=== PATIENT | female | born 1960 | race Caucasian/White ===

== ENCOUNTER 2017-03-10 14:10 | Emergency (ER) | payer OTHER ==
[~2017-03-10] VITALS: Ht 162.6 cm; Wt 72.0 kg
[2017-03-10 14:30] LABS: BASOPHILS % (AUTO) 0.7 % (0-1); EOSINOPHILS # (AUTO) 0.2 X10'3 (0-0.9); EOSINOPHILS % (AUTO) 2.6 % (0-6); HEMOGLOBIN 8.3 g/dl (12.0-16.0); LYMPHOCYTES # (AUTO) 2.5 X10'3 (1.1-4.8); LYMPHOCYTES % (AUTO) 37.7 % (21-51); MEAN CORPUSCULAR HEMOGLOBIN 20.3 PG (27.0-31.0); MEAN CORPUSCULAR HGB CONC 30.5 % (33.0-36.5); MEAN CORPUSCULAR VOLUME 66.4 FL (78-98); MEAN PLATELET VOLUME 7.9 FL (7.4-10.4); MONOCYTES # (AUTO) 0.5 X10'3 (0-0.9); MONOCYTES % (AUTO) 7.4 % (2-12); NEUTROPHILS # (AUTO) 3.4 X10'3 (1.8-7.7); NEUTROPHILS % (AUTO) 51.6 % (42-75); PLATELET COUNT 320 X10'3 (140-440); RED BLOOD COUNT 4.07 X10'6 (4.20-5.60); RED CELL DISTRIBUTION WIDTH 18.9 % (11.5-14.5); WHITE BLOOD COUNT 6.6 X10'3 (4.5-11.0)
[2017-03-10 14:39] LABS: ANISOCYTOSIS 2+; MICROCYTOSIS 2+; PLATELET ESTIMATE NORMAL
[2017-03-10 14:40] LABS: POIKILOCYTOSIS FEW; POLYCHROMASIA 2+; TARGET CELLS 1+
[2017-03-10 14:41] LABS: PARTIAL THROMBOPLASTIN TIME 23 SECONDS (22-32); PROTHROMBIN TIME 10.6 SECONDS (9.0-12.0)
[2017-03-10 14:51] LABS: ALANINE AMINOTRANSFERASE 24 U/L (12-78); ALBUMIN 3.7 G/DL (3.4-5.0); ALBUMIN/GLOBULIN RATIO 1.2 (1.1-1.5); ALKALINE PHOSPHATASE 97 IU/L (46-116); ANION GAP 6 (8-16); ASPARTATE AMINO TRANSFERASE 15 U/L (10-37); BILIRUBIN,TOTAL 0.3 MG/DL (0.1-1.0); BLOOD UREA NITROGEN 10 MG/DL (7-18); BUN/CREATININE RATIO 16.7 (6.6-38.0); CALCIUM 8.8 MG/DL (8.5-10.1); CHLORIDE 111 MMOL/L (99-107); GLUCOSE 104 MG/DL (70-104); POTASSIUM 3.9 MMOL/L (3.5-5.1); SODIUM 146 MMOL/L (135-145); TOTAL CARBON DIOXIDE 28.6 MMOL/L (24-32); TOTAL PROTEIN 6.9 G/DL (6.4-8.2); eGFR > 90 ML/MIN
[2017-03-10] MEDS ORDERED: diphenhydrAMINE 50 mg/ml inj IV ONE (15:35)
[2017-03-10] MEDS ORDERED: aspirin 325mg tablet PO ONE (15:35)
[2017-03-10] MEDS ORDERED: ondansetron/PF 4mg/2ml inj IV ONE (15:35)
[2017-03-10] MEDS ORDERED: metoclopramide 5 mg/ml inj IV ONE (15:35)
[2017-03-10] MEDS ORDERED: famotidine/PF 10 mg/ml inj IV ONE (15:35)
[2017-03-10] MEDS ORDERED: iohexol 300mg/ml 100ml inj. ONE (15:39)
[2017-03-10 15:51] LABS: LIPASE 417 U/L (73-393)
[2017-03-10] MEDS ORDERED: proCHLORperazine 10 MG/2 ml inj IV ONE (15:55)
[2017-03-10] MEDS ORDERED: LORazepam 2 mg/ml vial IV ONE (18:00)
[2017-03-10] MEDS ORDERED: PANT-47 PO (18:58)
[2017-03-10 19:09] VITALS: BP 141/92
== END 2017-03-10 19:10 | disposition home or self-care (01) ==
LOC: ER 14:10
DX: R10.13 Epigastric pain (principal); Z90.710 Acquired absence of both cervix and uterus; Z90.49 Acquired absence of other specified parts of digestive tract; Z98.84 Bariatric surgery status; Z88.5 Allergy status to narcotic agent
CPT/HCPCS: 36415; 71045; 74177; 80053; 83690; 84484; 85025; 85610; 85730; 87502; 87503; 93005; 96374; 96375; 99285; J0780; J1200; J2060; J2405; J3490; J7030; Q9967